=== PATIENT | female | born 1995 | race Caucasian/White ===

== ENCOUNTER 2022-03-23 08:34 | Emergency (ER) | payer OTHER, SELFPAY ==
[2022-03-23 08:56] VITALS: BP 125/68; PULSE 93; RESP 16; TEMP 36.7; O2SAT 99
--- NOTE | 2022-03-23 09:32 | ED.URI ---
HPI - URI/Sore Throat General Chief Complaint: Upper Respiratory Infection Stated Complaint: swollen lips sore throat Time Seen by Provider: 03/23/22 09:25 Source: patient, RN notes reviewed and old records reviewed Mode of arrival: ambulatory Limitations: no limitations History of Present Illness HPI Narrative: 26-year-old female who presents to [facility] with complaints of sore throat since Wednesday with painful swallowing rates her pain as 6/10 denies any runny nose or cough does report headache. Did awake this morning with some swollen lips denies any new soaps lotions new medications, foods, or cosmetics.Patient denies any difficulty with her breathing or any inability to swallow, no Carlos A angina noted. Patient reports children did have strep 1 month ago. MD elicited complaint: sore throat and other (lips feel swollenthis am) Onset (ago): day(s) (day 3 of symptoms) Pain scale (0-10): 6 Treatments prior to arrival: none Related Data Allergies Allergy/AdvReac Type Severity Reaction Status Date / Time No Known Allergies Allergy Verified 03/23/22 08:56 Review of Systems Review of Systems: CONSTITUTIONAL:Reports malaise,denies chills, sweats, or fever. EYES: Denies visual changes, redness, or discharge. ENT: Denies rhinorrhea, congestion, sinus pain, otalgia,positive for sore throat, lips feel swollen this morning CARDIOVASCULAR: Denies chest pain, palpitations, or edema. RESPIRATORY: Reports cough.? Denies dyspnea. GASTROINTESTINAL: Denies abdominal pain, nausea, vomiting, diarrhea SKIN: Denies rash or itching. MUSCULOSKELETAL: Denies myalgia. NEUROLOGIC: Reports headache. All systems reviewed & are unremarkable except as noted in HPI and below PMFSH Past Medical History Medical History (Updated 03/23/22 @ 09:47 by Deanne Amezquita NP) No pertinent past medical history Surgical History Surgical History (Updated 03/23/22 @ 09:47 by Deanne Amezquita NP) No significant past surgical history Social History Social History (Updated 03/23/22 @ 09:39 by Deanne Amezquita NP) Smoking status: Never smoker Alcohol intake: current Alcohol use details: social Substance use: never Substance use type: does not use Living arrangements: with family Gender identity (if verbalized by the patient): Female Comments At time of signature, agree with nursing past medical, surgical, social and family history. There is no relevant family history pertinent to the presenting complaint Exam Narrative: GENERAL: Well-appearing, well-nourished, and in no acute distress. HEAD: Normocephalic EYES: PERRLA, conjunctivae clear ENT: Nares clear, turbinates edematous and erythematous, no discharge. Mucous membranes moist. TM pearly rowland with dull light reflex bilaterally; no tragal tenderness. Oropharynx erythematous without lesions. Tonsils enlarged and without exudate, no drooling, no hoarseness, no trismus, uvula midline. No acute swelling noted to lips NECK: Supple lymphadenopathy CHEST: Clear to auscultation, breath sounds equal. No wheezing, rhonchi, rales, or stridor. No respiratory distress, speaks in full sentences.SAO2 99% on room air HEART: Regular rate and rhythm. No murmur heard. SKIN: Warm, dry, no rash. NEURO: Alert and oriented x3. PSYCH: Normal mood and affect Course Course Emergency Course: Patient is aware of diagnosis, understands and agrees to treatment plan.? Anticipatory guidance given.? Patient agrees to follow-up as directed and is aware of reasons to seek care at the emergency department. Portions of this record may have been created with voice recognition software Level of Care: Express Care Visit Vital Signs Vital signs: Vital Signs Temperature 36.7 C 03/23/22 08:56 Pulse Rate 93 03/23/22 08:56 Respiratory Rate 16 03/23/22 08:56 Blood Pressure 125/68 03/23/22 08:56 Pulse Oximetry 99 03/23/22 08:56 Oxygen Delivery Room Air 03/23/22
== END 2022-03-23 09:49 | disposition home or self-care (01) ==
PROVIDERS: Emergency Provider Registered Nurse
DX: J02.0 Streptococcal pharyngitis (principal)
CPT/HCPCS: 87880; 99203; G0463

== ENCOUNTER 2022-09-17 09:17 | Emergency (ER) | payer OTHER, SELFPAY ==
--- NOTE | ~2022-09-17 | XR_ITS ---
EXAMINATION: XR heel LT min 2V DATE: 09/17/2022 09:49 INDICATION: Left heel pain after running TECHNIQUE: Lateral and axial views of the left calcaneus were obtained. COMPARISON: None. FINDINGS: Alignment is normal. No fracture. Joint spaces are normal. Soft tissues are unremarkable. No ankle sallie int effusion. IMPRESSION: 1. Negative left heel radiographs. Reviewed, dictated and finalized at location A.
[2022-09-17 09:20] VITALS: BP 125/79; PULSE 68; RESP 14; TEMP 36.7; O2SAT 100
--- NOTE | 2022-09-17 10:04 | ED.GENADULT ---
HPI - General Adult General Chief complaint: Extremity Injury, Upper Stated complaint: Pain in heel of left foot Time Seen by Provider: 09/17/22 09:55 Source: patient, RN notes reviewed and old records reviewed Mode of arrival: ambulatory Limitations: no limitations History of Present Illness HPI narrative: 26 year old female who presents to express care wit complaints of left heel pain after running 3 miles on Wednesday outside preparing for half marathon on Wednesday. Patient reports that on Wednesday she developed left heel pain to the bottom of her heel with any weight bearing. Patient reports that she has iced left heel, and has taken Ibuprofen. Patient reports no pain to back of heel or up the back of her leg or at insertion sites of Achilles tendon. Patient has full mobility of her left foot with no tingling or numbness to left foot MD complaint: left heel pain Onset (ago): day(s) (2) Severity scale (1-10): 8 Treatments prior to arrival: NSAID, cold therapy and other (elevated left foot) Related Data Allergies Allergy/AdvReac Type Severity Reaction Status Date / Time No Known Allergies Allergy Verified 09/17/22 09:26 Review of Systems Review of Systems: CONSTITUTIONAL: Denies fever, chills, or sweats. EYES: Denies visual changes, redness, or discharge. ENT: Denies rhinorrhea, congestion, sore throat, or otalgia. CARDIOVASCULAR: Denies chest pain, palpitations, or edema. RESPIRATORY: Denies cough or dyspnea. GASTROINTESTINAL: Denies abdominal pain, nausea, vomiting, or diarrhea. GENITOURINARY: Denies dysuria or hematuria. SKIN: Denies rash or itching. MUSCULOSKELETAL: Denies back pain,positive for left heel pain, or myalgia. NEUROLOGIC: Denies headache, numbness, or weakness. PSYCHIATRIC: Denies anxiety or depression. All systems reviewed & are unremarkable except as noted in HPI and below PMFSH Past Medical History Medical History (Updated 09/18/22 @ 00:01 by Ki Thomas) No pertinent past medical history Surgical History Surgical History (Updated 03/23/22 @ 09:47 by Deanne Amezquita NP) No significant past surgical history Social History Social History (Updated 03/23/22 @ 09:39 by Deanne Amezquita NP) Smoking status: Never smoker Alcohol intake: current Alcohol use details: social Substance use: never Substance use type: does not use Living arrangements: with family Gender identity (if verbalized by the patient): Female Comments At time of signature, agree with nursing past medical, surgical, social and family history. There is no relevant family history pertinent to the presenting complaint Exam Narrative: GENERAL: Well-appearing, well-nourished, and in no acute distress. HEAD: Normocephalic, atraumatic. EYES: PERRLA and EOMI. ENT: Nares clear, no rhinorrhea or epistaxis. Mucous membranes moist.TM's normal with good light reflex, throat pink with no swelling. NECK: Supple.no lymphadenopathy CHEST: Clear to auscultation. No respiratory distress. HEART: Regular rate and rhythm. No murmur heard. Normal peripheral pulses. ABDOMEN: Soft, nontender, nondistended, normal active bowel sounds. EXTREMITIES: Normal range of motion. No edema. Left heel pain to bottom of heel especially with weight bearing, has full mobility of left foot with strong left pedal pulse and sensation is intact to left foot and toes. Patient has no pain to the back of heel or at Achilles insertion sites. SKIN: Warm, dry, no rash. NEURO: No focal deficits. Alert and oriented x3. Course Course Emergency Course: Patient is aware of diagnosis, understands and agrees to treatment plan.? Anticipatory guidance given.? Patient agrees to follow-up as directed and is aware of reasons to seek care at the emergency department. Portions of this record may have been created with voice recognition software Level of Care: Express Care Visit Vital Signs Vital signs: Vital Signs Temperature 36.7 C 09/17/22 09:20 P
== END 2022-09-17 10:33 | disposition home or self-care (01) ==
PROVIDERS: Emergency Provider Registered Nurse
DX: M79.672 Pain in left foot (principal)
CPT/HCPCS: 73650; 99213; G0463

== ENCOUNTER 2024-04-11 08:14 | Emergency (ER) | payer SELFPAY ==
[2024-04-11 08:22] VITALS: BP 126/67; PULSE 72; RESP 18; TEMP 36.6; O2SAT 100
[2024-04-11 08:43] LABS: EDSTREPNEGPOS1 Negative (Negative)
--- NOTE | 2024-04-11 08:55 | ED_ITS ---
HPI - URI/Sore Throat General Chief Complaint: Upper Respiratory Infection Stated Complaint: Sore Throat Time Seen by Provider: 04/11/24 08:26 Source: patient, RN notes reviewed and old records reviewed Mode of arrival: ambulatory Limitations: no limitations History of Present Illness HPI Narrative: 28 year female to Express Care with complaint sore throat that started this morning. Patient states that her son was diagnosed with strep throat yesterday. Patient denies cough, fever, allergies, pertinent medical history. patient able to tolerate fluids by mouth. Patient resting comfortably in exam room in no acute distress. Respirations even and nonlabored. Related Data Allergies Allergy/AdvReac Type Severity Reaction Status Date / Time No Known Allergies Allergy Verified 09/17/22 09:26 Review of Systems Review of Systems: All systems reviewed & are unremarkable except as noted in HPI and below Constitutional: Constitutional: Reports no additional constitutional complaints Eyes: Eyes: Reports no additional eye complaints ENT: Reports as per HPI and Reports sore throat Cardiovascular: Cardiovascular: Reports no additional cardiovascular complaints, Denies chest pain and Denies dyspnea Respiratory: Respiratory: Reports no additional respiratory complaints, Denies cough and Denies dyspnea Musculoskeletal: Musculoskeletal: Reports no additional musculoskeletal complaints Neurologic: Reports system reviewed and no additional complaints, except as documented Psychiatric: Psychiatric: Reports no additional psychiatric complaints PMFSH Past Medical History Medical History No pertinent past medical history Surgical History Surgical History No significant past surgical history Social History Social History Smoking status: Never smoker Alcohol intake: current Alcohol use details: social Substance use: never Substance use type: does not use Living arrangements: with family Gender identity (if verbalized by the patient): Female Comments At the time of my signature, I reviewed and agree with the nursing past medical, surgical, social, and family history. There is no relevant family history pertinent to the patient complaint. Exam Const: General: cooperative, healthy appearing, comfortable, no acute distress, alert and well nourished Nutritional Appearance: well nourished Orientation/consciousness: patient oriented x3 Limitations: no limitations HENMT: Head: normal to inspection Ears: external ears normal Face/Nose/Sinus: Normal external nose present, Normal nares present, normal facial exam, No erythema and No edema Face and sinus: normal facial exam, no erythema and no edema Mouth: Yes Normal oral and palatal mucosa present Throat: posterior oropharynx abnormal erythema Eyes: General: appearance normal, both eyes and all related structures Neck: Neck: normal visual inspection, full ROM and no meningeal signs Chest: Chest palpation & inspection: normal inspection of the chest Resp: Effort & Inspection: normal respiratory effort and able to speak in complete sentences Auscultation: clear to auscultation bilaterally Cardio: Jugular venous distension: no JVD Rate: regular rate Rhythm: regular rhythm Back/Spine/Pelvis: Cervical Spine: cervical ROM normal Skin: General skin exam: normal color, no rashes or lesions noted and turgor normal Neuro: General: patient oriented x3, gait normal, moves all extremities and no meningeal signs Speech: normal speech Gait exam (Neuro): Normal gait present Extrem: General: normal to inspection, full ROM and capillary refill normal Psych: Appearance: grossly normal and well kempt Course Course Emergency Course: Some parts of this dictation were generated by voice recognition software and may contain typographical and/or grammatical inaccuracies. Level of Care: Express Care Visit Vital Signs Vital signs: Vital Signs Temperature 36.6 C 04/11/24 08:22 Pulse Rate 72 04/11/24 08:22 Respiratory Rate 18 04/11/24 08:22 Blood Pressure 126/67 04/11/24 08:22 Pulse Oximetry 100 04/11/24 08:22 Oxygen Delivery Room Air 04/11/24 08:22 Temperature 36.6 C 04/11/24 08:22 Pulse Rate 72 04/11/24 08:22 Respiratory Rate 18 04/11/24 08:22 Blood Pressure 126/67 04/11/24 08:22 Pulse Oximetry 100 04/11/24 08:22 Oxygen Delivery Room Air 04/11/24 08:22 reviewed MDM - URI/Sore Throat MDM Narrative Medical decision making narrative: 28 year female to Express Care with complaint sore throat that started this morning. Patient states that her son was diagnosed with strep throat yesterday. Patient denies cough, fever, allergies, pertinent medical history. patient able to tolerate fluids by mouth. Patient resting comfortably in exam room in no acute distress. Respirations even and nonlabored. On exam, posterior oropharynx erythematous. Exam otherwise unremarkable. Patient tested negative for strep in clinic. Culture sent. Patient is sitting comfortably in exam room nontoxic in appearance. Patient appropriate for outpatient treatment and follow-up. Discharge instructions reviewed with patient, as well as provided in writing per nursing staff. The instructions also include specific and strict return/GO TO THE ER as well as f/u information. All questions have been answered, and the patient deny any further questions with discharge and discharge plan. Some parts of this dictation were generated by voice recognition software and may contain typographical and/or grammatical inaccuracies. Differential Diagnosis Differential diagnosis: Likely upper respiratory infection, croup, otitis media, sinusitis, viral infection, bronchitis, influenza and pharyngitis Lab Data Labs: Lab Results 04/11/24 Range/Units 08:41 POC Grp A Strep Screen Negative (Negative) Discharge Plan Discharge Clinical Impression: Upper respiratory infection Patient Disposition: Home, Self-Care Condition: Stable Instructions: Upper Respiratory Infection (ED) Additional Instructions: Your rapid strep swab was negative today at [facility]. A throat culture will be sent to the laboratory for further testing. If the test is positive, you will receive a phone call within 48 hours and an appropriate antibiotic will be initiated at that time. Your symptoms are likely due to a viral illness, which is not treated with antibiotics. Viral symptoms can be present for up to a few weeks. -Alternate Tylenol and Motrin per package directions for fever or pain. -Antihistamine medication such as Benadryl at night and Zyrtec/Claritin/Shannon during the day can help improve symptoms. -Use Flonase twice a day for 5 days then daily to help reduce the inflammation and dry up your sinuses. -You can also use Sudafed or Mucinex. Be sure to drink plenty of water with these medications at least 8 ounces with every dose and it is important to drink 8 to 10 glasses of water per day. Water is a natural decongestant -Eat and drink things that are easy to swallow, like tea or soup, or popsicles. -Oral rinses such as: Salt water gargles and/or may use topical anesthetic (eg. Chloraseptic spray) or lozenges to relieve dryness or throat pain). -Frequent hand washing or hand prosthetic dentist is one of the best ways to prevent spread of infection. -Using a vaporizer or humidifier at night will also help thin secretions and help with coughing up phlegm. -Follow up with primary care provider in 2-3 days if condition is not improving; or seek ER visit if you have trouble breathing, cannot drink enough fluids, have muffled voice, difficulty opening your mouth, or severe swelling. Follow-up/Referrals: PHYSICIAN,SPOUTING INSTALLER [Primary Care Provider] - Stand Alone Forms: Work/School Release IP
== END 2024-04-11 09:22 | disposition home or self-care (01) ==
PROVIDERS: Emergency Provider Nurse Practitioner Family
DX: J06.9 Acute upper respiratory infection, unspecified (principal)
CPT/HCPCS: 87081; 87880; 99213; G0463

== ENCOUNTER 2025-05-02 10:25 | Emergency (ER) | payer SELFPAY ==
[2025-05-02 10:26] VITALS: BP 127/71; PULSE 101; RESP 16; TEMP 36.6; O2SAT 98
--- NOTE | 2025-05-02 10:54 | ED_ITS ---
HPI - URI/Sore Throat General Chief Complaint: Upper Respiratory Infection Stated Complaint: Sore Throat Time Seen by Provider: 05/02/25 10:35 Source: patient, RN notes reviewed and old records reviewed Mode of arrival: ambulatory Limitations: no limitations History of Present Illness HPI Narrative: 29 year old female who presents to [facility] care with complaints of sore throat for the past 3 days. Patient reports that step son has positive strep at this time. Patient has pus pockets and enlargement of left tonsil with left lymphadenopathy noted. Patient reports tht she has been taking Ibuprofen for her symptoms MD elicited complaint: sore throat Onset (ago): day(s) (3) Pain scale (0-10): 6 Able to tolerate fluids by mouth: Yes Exacerbating factors: swallowing Treatments prior to arrival: ibuprofen Related Data Allergies Allergy/AdvReac Type Severity Reaction Status Date / Time No Known Allergies Allergy Verified 05/02/25 10:37 Review of Systems 2 Review of Systems: CONSTITUTIONAL:Reports malaise,no chills, sweats, or fever. EYES: Denies visual changes, redness, or discharge. ENT: Reports rhinorrhea, congestion, sinus pain, no otalgia and +sore throat. CARDIOVASCULAR: Denies chest pain, palpitations, or edema. RESPIRATORY: Reports no acute cough.? Denies dyspnea. GASTROINTESTINAL: Denies abdominal pain, nausea, vomiting, diarrhea SKIN: Denies rash or itching. MUSCULOSKELETAL: Denies myalgia. NEUROLOGIC: Denies headache. All systems reviewed & are unremarkable except as noted in HPI and below PMFSH Past Medical History Medical History No pertinent past medical history Surgical History Surgical History No significant past surgical history Social History Social History Smoking status: Never smoker Alcohol intake: current Alcohol use details: social Substance use: never Substance use type: does not use Living arrangements: with family Gender identity (if verbalized by the patient): Female Comments At time of signature, agree with nursing past medical, surgical, social and family history. There is no relevant family history pertinent to the presenting complaint Exam Narrative: GENERAL:Moderately ill-appearing, well-nourished, and in no acute distress. HEAD: Normocephalic EYES: PERRLA, conjunctivae clear ENT: Nares clear, turbinates edematous and erythematous, clear discharge. Mucous membranes moist. TM pearly rowland with dull light reflex bilaterally; no tragal tenderness. Oropharynx erythematous without lesions. Tonsils especially left red enlarged with pus pockets noted, no drooling, no hoarseness, no trismus, uvula midline. NECK: Supple+ lymphadenopathy especially left side CHEST: Clear to auscultation, breath sounds equal. No wheezing, rhonchi, rales, or stridor. No respiratory distress, speaks in full sentences.no cough noted SAO2 98% on room air HEART: Regular rate and rhythm. No murmur heard. SKIN: Warm, dry, no rash. NEURO: Alert and oriented x3. PSYCH: Normal mood and affect Course Course Level of Care: Express Care Visit Vital Signs Vital signs: Vital Signs Temperature 36.6 C 05/02/25 10: Pulse Rate 101 H 05/02/25 10:26 Respiratory Rate 16 05/02/25 10:26 Blood Pressure 127/71 05/02/25 10:26 Pulse Oximetry 98 05/02/25 10:26 Oxygen Delivery Room Air 05/02/25 10:26 Temperature 36.6 C 05/02/25 10:26 Pulse Rate 101 H 05/02/25 10:26 Respiratory Rate 16 05/02/25 10:26 Blood Pressure 127/71 05/02/25 10:26 Pulse Oximetry 98 05/02/25 10:26 Oxygen Delivery Room Air 05/02/25 10:26 reviewed [facility] Narrative Medical decision making narrative: 29 year old female with complaints of 3 day history of sore throat with positive exposure to strep from step son. Patient tests positive for strep throat with white pus pockets to her left tonsil. Oral antibiotics and suuportive care of Tylenol or Ibuporfen for any fever or pain recommended. Anticipatory guidance and reasons to seek care in ED reviewed with patient with understanding vvoiced. Differential Diagnosis Differential Diagnosis: Differential diagnostic considerations for upper respiratory infection include upper respiratory infection, croup, otitis media, sinusitis, viral infection, bronchitis, influenza, pharyngitis, strep, uvulitis.? Lab Data [facility] Lab Attestation statement: I personally reviewed the patient's lab results. Lab results narrative: strep screen positive Labs: Lab Results 05/02/25 Range/Units 10:55 POC Grp A Strep Screen Positive (Negative) reviewed Critical Care Time Critical Care Time Critical Care Time: No Discharge Plan Discharge Clinical Impression: Acute streptococcal pharyngitis Patient Disposition: Home Condition: Stable Instructions: Antibiotic Form, Strep Throat (ED) Additional Instructions: You tested positive for Group A strep . Take the entire course of antibiotics. Throw away your current toothbrush and begin using a new toothbrush in 48 hours in order to prevent re-infection. Sanitize all reusable water bottles . Do not share items with others. Salt water gargles may alleviate some of the throat discomfort. You can take Tylenol or ibuprofen per the package instructions for pain/fever. if any difficulty with breathing or with swallowing go directly to emergency room If your symptoms persist, change or worsen significantly before you can contact your personal physician then please, without delay, go to the emergency department for further evaluation. Follow-up with PCP in 7-10 days or sooner if needed Follow up with PCP soon in regards to your blood pressure which is elevated above threshold for referral. Blood pressure above 120/80 may indicate pre- hypertension. minimal elevation 127/71 Patient Language: Swedish Prescriptions: New amoxicillin 875 mg tablet 875 mg PO Q12H Qty: 20 0RF Rx Instructions: take all doses of oral antibiotic Follow-up/Referrals: PHYSICIAN,ARSON INVESTIGATOR [Primary Care Provider, Internal Medicine] Time of Disposition: 11:02 Quality [place] Coma Scale Eyes: Open Verbal: Oriented and Alert Motor: Follows Commands [place] Coma Total Score: 15
[2025-05-02 10:56] LABS: EDSTREPNEGPOS1 Positive (Negative)
== END 2025-05-02 11:13 | disposition home or self-care (01) ==
PROVIDERS: Emergency Provider Registered Nurse
DX: J02.0 Streptococcal pharyngitis (principal)
CPT/HCPCS: 87880; 99213; G0463